=== PATIENT | male | born 1945 ===

== ENCOUNTER 2021-07-29 09:28 | Day surgery (SDC) | payer MEDICARE, OTHER ==
[~2021-07-29 09:28] MED LIST: Acetaminophen 325 MG Tab PO PRN; Acetaminophen/Codeine 300-30 MG Tab PO PRN; Cataract Ophth Solution EYELF ONE; Moxifloxacin 0.5% Ophth Soln 3 ML Bottle EYELF ONE; Ondansetron 4 MG/2 ML SDV IVPUSH PRN; Phenylephrine 10% Ophth Soln 5 ML Bot EYELF ONE; Povidone-Iodine 5% Sterile Ophth Soln 30 ML Bottle EYELF ONE; Proparacaine 0.5% Ophth Soln 15 ML Bottle EYELF ONE; Sodium Chloride 0.9% 10 ML Syringe FLUSH PRN; Timolol Maleate 0.5% Ophth Soln 5 ML Bottle EYELF ONE; Tropicamide 1% Ophth Soln 15 ML Bottle EYELF ONE
[2021-07-29] MEDS ORDERED: Midazolam 1 MG/ML 2 ML SDV IV ONE (09:29)
[2021-07-29] MEDS ORDERED: Sodium Chloride 0.9% 10 ML Syringe IV ONE (09:29)
[2021-07-29] MEDS ORDERED: Dexamethasone 4 MG/ML SDV IV ONE (09:29)
[2021-07-29] MEDS ORDERED: Tetracaine HCl/PF 0.5% 4 ML Bottle EYELF ONE (10:33)
[2021-07-29] MEDS ORDERED: Apraclonidine 0.5% Ophth Soln 5 ML Bot EYELF ONE (10:34)
[2021-07-29] MEDS ORDERED: Diclofenac Sodium 0.1% Ophth Soln 5 ML Bottle EYELF ONE (10:34)
[2021-07-29] MEDS ORDERED: Lidocaine 1% 30 ML SDV ONE (10:34)
[2021-07-29] MEDS ORDERED: Povidone-Iodine 5% Sterile Ophth Soln 30 ML Bottle EYELF ONE (10:34)
[2021-07-29] MEDS ORDERED: Vancomycin 500 MG SDV EYELF ONE (10:35)
[2021-07-29] MEDS ORDERED: Balanced Salt Solution Ophth Irrig 500 ML Bottle IOCULAR ONE (10:35)
[2021-07-29] MEDS ORDERED: Dexamethasone/Neomycin/Polymyxin B Ophth Oint 3.5 GM Tube EYELF ONE (10:35)
[2021-07-29] MEDS ORDERED: Chondroitin Sulfate/Hyaluronate Sodium Ophth Inj 0.5 ML Syringe IOCULAR ONE (10:35)
[2021-07-29] MEDS ORDERED: Dexamethasone 4 MG/ML SDV IOCULAR ONE (10:37)
== END 2021-07-29 11:45 | disposition home or self-care (01) ==
LOC: DL.SDS 09:28 → EDBD 11:00 → DL.SDS 11:45
PROVIDERS: ATTEND Ophthalmology
DX: H25.812 Combined forms of age-related cataract, left eye (principal); F17.210 Nicotine dependence, cigarettes, uncomplicated; H61.22 Impacted cerumen, left ear; N52.9 Male erectile dysfunction, unspecified
CPT/HCPCS: 00142; A9270-GY; J1100; J2250; J3370; J3490; V2632

== ENCOUNTER 2021-08-26 09:16 | Day surgery (SDC) | payer MEDICARE, OTHER ==
[~2021-08-26 09:16] MED LIST changes: -Cataract Ophth Solution EYELF ONE; -Moxifloxacin 0.5% Ophth Soln 3 ML Bottle EYELF ONE; -Phenylephrine 10% Ophth Soln 5 ML Bot EYELF ONE; -Povidone-Iodine 5% Sterile Ophth Soln 30 ML Bottle EYELF ONE; -Proparacaine 0.5% Ophth Soln 15 ML Bottle EYELF ONE; -Sodium Chloride 0.9% 10 ML Syringe FLUSH PRN; -Timolol Maleate 0.5% Ophth Soln 5 ML Bottle EYELF ONE; +Tobramycin 0.3% Ophth Drops 5 ML Bottle EYELF ONE; -Tropicamide 1% Ophth Soln 15 ML Bottle EYELF ONE
[2021-08-26] MEDS ORDERED: Midazolam 1 MG/ML 2 ML SDV IV ONE (09:17)
[2021-08-26] MEDS ORDERED: Sodium Chloride 0.9% 10 ML Syringe IV ONE (09:17)
[2021-08-26] MEDS ORDERED: Dexamethasone 4 MG/ML SDV IV ONE (09:17)
[2021-08-26] MEDS: Sodium Chloride 0.9% 10 ML Syringe FLUSH PRN (09:39)
[2021-08-26] MEDS: Proparacaine 0.5% Ophth Soln 15 ML Bottle EYERT ONE (09:40)
[2021-08-26] MEDS: Moxifloxacin 0.5% Ophth Soln 3 ML Bottle EYERT ONE (09:40)
[2021-08-26] MEDS: Povidone-Iodine 5% Sterile Ophth Soln 30 ML Bottle EYERT ONE ×2 (09:42→10:34)
[2021-08-26] MEDS: Tropicamide 1% Ophth Soln 15 ML Bottle EYERT ONE (09:42)
[2021-08-26] MEDS: Timolol Maleate 0.5% Ophth Soln 5 ML Bottle EYERT ONE (09:43)
[2021-08-26] MEDS: Cataract Ophth Solution EYERT ONE (09:43)
[2021-08-26] MEDS: Phenylephrine 10% Ophth Soln 5 ML Bot EYERT PRN (09:43)
[2021-08-26] MEDS: Lidocaine 1% 30 ML SDV ONE (10:34)
[2021-08-26] MEDS: Apraclonidine 0.5% Ophth Soln 5 ML Bot EYERT ONE (10:34)
[2021-08-26] MEDS: Tetracaine HCl/PF 0.5% 4 ML Bottle EYERT ONE (10:34)
[2021-08-26] MEDS: Diclofenac Sodium 0.1% Ophth Soln 5 ML Bottle EYERT ONE (10:34)
[2021-08-26] MEDS: Balanced Salt Solution Ophth Irrig 500 ML Bottle IOCULAR ONE (10:35)
[2021-08-26] MEDS: Vancomycin 500 MG SDV EYERT ONE (10:35)
[2021-08-26] MEDS: Chondroitin Sulfate/Hyaluronate Sodium Ophth Inj 0.5 ML Syringe IOCULAR ONE (10:35)
[2021-08-26] MEDS: Dexamethasone/Neomycin/Polymyxin B Ophth Oint 3.5 GM Tube EYERT ONE (10:35)
== END 2021-08-26 11:35 | disposition home or self-care (01) ==
LOC: DL.SDS 09:16
PROVIDERS: ATTEND Ophthalmology
DX: H25.811 Combined forms of age-related cataract, right eye (principal); F17.210 Nicotine dependence, cigarettes, uncomplicated; H61.22 Impacted cerumen, left ear; N52.9 Male erectile dysfunction, unspecified
CPT/HCPCS: 00142; A9270-GY; J1100; J2250; J3370; J3490; V2632